=== PATIENT | female | born 1950 | race Two or more races ===

== ENCOUNTER 2019-03-05 11:55 | Emergency (ER) | payer OTHER ==
[~2019-03-05] VITALS: Ht 165.1 cm; Wt 93.9 kg
[~2019-03-05 11:55] MED LIST: ALEVE220 MG PO; ALTACE10 MG PO; AMARYL 4; CEFADROXIL500 MG PO; FENOFIBRATE160 MG; KOMBIGLYZE XR1 EAC2; LANTUS SOLOSTAR3 ML; METFORMIN HCL1000 MG PO; OMEPRAZOLE40 MG; PERCOCET 5/3251 TAB PO; PLAVIX75 MG PO; PROVENTIL3 ML/2.5 M IH; TRAMADOL HCL-AP1 TAB PO; TRAZODONE HCL50 MG; TUSSIONEX PENNKI5 ML PO; ZITHROMAX500 MG PO
[2019-03-05] MEDS ORDERED: LOSARTAN POTASS25 MG (13:22)
[2019-03-05] MEDS ORDERED: TRAZODONE HCL50 MG (13:23)
[2019-03-05] MEDS ORDERED: ZETIA10 MG (13:23)
[2019-03-05] MEDS ORDERED: SIMVASTATIN40 MG (13:23)
== END 2019-03-05 15:45 | disposition home or self-care (01) ==
LOC: ER 11:55
DX: M25.512 Pain in left shoulder (principal)

== ENCOUNTER 2023-12-02 08:14 | Outpatient (CLI) | payer OTHER ==
[~2023-12-02 08:14] MED LIST changes: +LOSARTAN POTASS25 MG; +SIMVASTATIN40 MG; +ZETIA10 MG
[2023-12-02 09:29] LABS: HEMATOCRIT 39.3 % (36.0-45.00); MEAN CELL VOLUME 90.5 fL (80.00-100.00); MEAN CORPUSCULAR HGB CONC 33.2 g/dl (32.0-36.0); PLATELET COUNT 203 K/uL (150-450); RED BLOOD COUNT 4.34 M/uL (4.00-6.00); RED CELL DISTRIBUTION WIDTH 13.9 % (11.5-14.5)
[2023-12-02 10:04] LABS: ALBUMIN 3.7 gm/dL (3.4-5.0); BILIRUBIN TOTAL 0.5 mg/dL (0.3-1.2); CALCIUM 9.3 mg/dL (8.5-10.1); CHOL HDL RATIO 2.9 (0-5.0); CREATININE SERUM 0.55 mg/dL (0.55-1.02); GFR 108.65; GLOBULINA 3.2 G/DL (2.4-3.5); POTASSIUM 4.11 mEq/L (3.5-5.1); T4 TOTAL 9.55 UG/DL (4.8-13.9); TOTAL PROTEIN 6.9 gm/dL (6.4-8.2); TSH 2.23 uIU/mL (0.358-3.74)
[2023-12-02 10:34] LABS: T3 TOTAL 1.2 ng/ml (0.846-2.02); VITAMIN D3 25 HYDROXY 21.53 ng/ml (30-120)
[2023-12-02 11:50] LABS: PH,URINE 5.5 (5.0-8.0); URINE APPEARANCE Cloudy; URINE BILIRRUBIN Negative (NEGATIVE); URINE BLOOD Negative; URINE COLOR Yellow; URINE GLUCOSE Negative (NEGATIVE); URINE LEUKOCYTE Large; URINE NITRATE Negative; URINE PROTEIN Negative (NEGATIVE); URINE UROBILINOGEN 0.2 E.U./dl
[2023-12-02 11:54] LABS: URINE BACTERIA 4906.3 uL (0.0-1933); URINE EPITHELIAL CELLS 82.8 uL (0.0-38.8); URINE RBC 9.1 uL (0.0-20.8); URINE WBC 297.1 uL (0.0-23.2)
== END 2023-12-02 08:17 | disposition home or self-care (01) ==
LOC: LAB 08:14
PROVIDERS: ATTEND Internal Medicine Cardiovascular Disease
DX: I10 Essential (primary) hypertension (principal); E11.9 Type 2 diabetes mellitus without complications; E03.9 Hypothyroidism, unspecified; E78.2 Mixed hyperlipidemia; E55.9 Vitamin D deficiency, unspecified; Z12.11 Encounter for screening for malignant neoplasm of colon

== ENCOUNTER 2023-12-02 09:40 | Outpatient (CLI) | payer OTHER | END 2023-12-02 10:07 | disposition home or self-care (01) | LOC: TOM 09:40 | PROVIDERS: ATTEND Internal Medicine Cardiovascular Disease | DX: M11.9 Crystal arthropathy, unspecified (principal); M19.90 Unspecified osteoarthritis, unspecified site; J44.9 Chronic obstructive pulmonary disease, unspecified; R51.0 Headache with orthostatic component, not elsewhere classified ==

== ENCOUNTER 2023-12-02 12:02 | Outpatient (CLI) | payer OTHER | END 2023-12-02 12:04 | disposition home or self-care (01) | LOC: NUCLEAR 12:02 | PROVIDERS: ATTEND Internal Medicine Cardiovascular Disease | DX: M81.0 Age-related osteoporosis without current pathological fracture (principal) ==